=== PATIENT | female | born 1940 | race Caucasian/White ===

== ENCOUNTER 2016-06-15 11:53 | Emergency (ER) | payer MEDICARE, OTHER ==
[~2016-06-15] VITALS: Wt 80.0 kg
[~2016-06-15 11:53] MED LIST: ATENOLOL; AZIT1PAC8; NITR0.4T28 SL; singulair; tylenol
[2016-06-15] MEDS ORDERED: HYDROCODONE/APAP (5/325) TAB PO ONE (13:30)
--- NOTE | 2016-06-15 14:46 | RADRPT ---
AMENDMENT: 06/15/2016 2:50:29 PM Dennis Cool M.D Mild grade 1 anterolisthesis of L5 on S1 of 5-6 mm best visualized on the dedicated views of the sac rum. The first impression for correctly report dextroscoliosis with degenerative spondylosis greate st at L4-L5 and L5-S1. PROCEDURE: XR Lumbar Spine. CLINICAL INDICATION: Back pain. Trauma. TECHNIQUE: AP, lateral and cone-down lateral view of the lumbar spine were obtained. COMPARISON: No prior studies are available for comparison. FINDINGS: Marked dextroscoliosis of the thoracolumbar spine centered at T12. Grade 1 anterolisthesis of L4 on L5 of 8 mm . No evidence of fracture. The disc spaces are normal in appearance. Degenerative facet joint arthropathy from L2-L3 through L5-S1 greatest bilaterally L5-S1 and more pronounced on the ri ght 5 [id number] vertebrae. The soft tissues appear normal. IMPRESSION: Marked dextroscoliosis with degenerative spondylosis greatest and L4-L5 . No fracture. RPTAT:AAJJ Physician Ajay Date Time Electronically viewed and signed by Physician Ajay on 06/15/2016 14:51 ARIANE/
--- NOTE | 2016-06-15 14:49 | RADRPT ---
PROCEDURE: Sacrum and coccyx CLINICAL INDICATION: Trauma. Pain. TECHNIQUE: AP and lateral views of the sacrum and coccyx COMPARISON: None FINDINGS: The mid pelvis and sacrum are unremarkable. No evidence of fracture or dislocation. Degenerative c hanges of the lumbar spine as described a dedicated lumbar spine series. Bilateral degenerative sub chondral sclerosis of the sacroiliac joints. IMPRESSION: No fracture or dislocation. Degenerative changes of the visualized lumbar spine and sacroiliac join ts. RPTAT:AAJJ Eulalio Cool Physician Date Time Electronically viewed and signed by Eulalio Cool Physician on 06/15/2016 14:49 ARIANE/
[2016-06-15] MEDS ORDERED: HYDR-906 PO (15:15)
[2016-06-15] MEDS ORDERED: DOCU-144 PO (15:15)
--- NOTE | 2016-06-15 15:18 | ERD ---
ER Documentation Chief Complaint Date/Time DATE: 06/15/16 TIME: 15:15 Chief Complaint [facility] PAIN HPI This 75-year-old female who presents with right-sided low back pain after mechanical fall 2 weeks ago. She denies any bowel or bladder incontinence, weakness. She states she has a history of osteoporosis. She denies any head injury, additional complaints related to her fall. Patient has taken [place] in the past for chronic pain with relief. ROS All systems reviewed and are negative except as per history of present illness. Medications Home Meds Active Scripts Docusate Sodium* (Colace*) 100 Mg Capsule, 100 MG PO BID, #30 CAP Prov:NIKOLE RAMOS MD 06/15/16 Hydrocodone/Acetaminophen ([place] 5-325 Tablet) 1 Each Tablet, 1 TAB PO Q6H Y for PAIN, #14 TAB Prov:NIKOLE RAMOS MD 06/15/16 Reported Medications Nitroglycerin (Nitroquick) 0.4 Mg Tab.subl, 0.4 MG SL PRN 11/17/11 [Atenolol] No Conflict Check 11/17/11 singulair 12/16/09 Azithromycin* (Zithromax*) 1 G/Pkt Packet 12/16/09 tylenol 12/16/09 Allergies Allergies: Coded Allergies: No Known Allergy (Verified , 12/16/09) PMhx/Soc History of Surgery: Yes (breast ca, fibroids,FIBROIDS,LEFT KNEE SX,) Anesthesia Reaction: No Hx Neurological Disorder: No Hx Respiratory Disorders: No Hx Cardiac Disorders: Yes (htn) Hx Psychiatric Problems: No Hx Miscellaneous Medical Probl: No (SCOLIOSIS,DM) Hx Alcohol Use: No Hx Substance Use: No Hx Tobacco Use: No Smoking Status: Never smoker Physical Exam Vitals Vital Signs Date Time Temp Pulse Resp B/P Pulse Ox O2 Delivery O2 Flow Rate FiO2 06/15/16 12:01 98.0 92 18 182/71 99 Physical Exam Const: [] Alert, [id number]. Head: Atraumatic Eyes: Normal Conjunctiva ENT: Normal External Ears, Nose and Mouth. Neck: Full range of motion..~ No meningismus. Resp: Clear to auscultation bilaterally Cardio: Regular rate and rhythm, no murmurs Abd: Soft, non tender, non distended. Normal bowel sounds Skin: No petechiae or rashes Back: No midline or flank tenderness. Tenderness in the right L4-5 paraspinous muscles and sacral area. No appreciable midline tenderness or deformities. Patient is able to ambulate with difficulty but no weakness. Ext: No cyanosis, or edema Neur: Awake and alert Psych: Normal Mood and Affect Results 24 hrs Current Medications Medications (Trade) Dose Ordered Sig/Marcelle Route PRN Reason Start Time Stop Time Status Last Admin Dose Admin Acetaminophen/ Hydrocodone Bitart ([place] (5/325)) 1 tab ONCE ONCE PO 06/15/16 13:30 06/15/16 13:31 DC 06/15/16 13:40 Procedures/MDM X-ray LS-Spine 3V Interpreted by me: Bones: [No fracture] Joints: [No dislocation] Foreign body: [None]. Impression-degenerative changes without fracture or dislocation. My sacrum and coccyx x-ray AP lateral 2 view-no fracture, no dislocation. impression-degenerative changes without fracture dislocation. Patient was given [place] 5 mg by mouth. Patient presents with low back pain after my chemical fall without evidence of fracture, dislocation, neurologic deficit, bacterial infection. She will treated with a short course of [place] and Colace at home with instructions to follow-up with her primary care doctor. She should otherwise return for fevers, weakness, incontinence, new or worsening symptoms as directed after instructions for Departure Diagnosis: Primary Impression: Fall Encounter type: initial encounter Qualified Code: W19.XXXA - Fall, initial encounter Additional Impression: Back pain Back pain location: low back pain Chronicity: acute Back pain laterality: right Sciatica presence: without sciatica Qualified Code: M54.5 - Acute right-sided low back pain without sciatica Condition: Stable Patient Instructions: Back Pain (Acute Or Chronic), Fall, Mechanical Additional Instructions: Examines/ x-ray normal hoy. Cheque otro vez con [facility] doctor primario en el proximo louie or regresa para mas o nueva simptomas. NIKOLE RAMOS MD Jun 15, 2016 15:18
[2016-06-15 16:34] VITALS: BP 141/96; PULSE 70; RESP 20; TEMP 98.3
== END 2016-06-15 16:36 | disposition home or self-care (01) ==
LOC: FTE 11:53
DX: S39.92XA Unspecified injury of lower back, initial encounter (principal); I10 Essential (primary) hypertension; E11.9 Type 2 diabetes mellitus without complications; W19.XXXA Unspecified fall, initial encounter; Y92.9 Unspecified place or not applicable
CPT/HCPCS: 72100; 72220